=== PATIENT | male | born 1980 ===

== ENCOUNTER → 2022-09-03 12:47 | Outpatient (CLI) | payer OTHER | END | disposition home or self-care (01) | LOC: LAB 12:47 | PROVIDERS: ATTEND General Practice | DX: R05.9 Cough, unspecified (principal); R06.02 Shortness of breath; R07.9 Chest pain, unspecified; Z20.822 Contact with and (suspected) exposure to COVID-19; Z13.83 Encounter for screening for respiratory disorder NEC ==